=== PATIENT | female | born 1995 | race Two or more races ===

== ENCOUNTER 2019-08-20 16:39 | Outpatient (CLI) | payer MEDICAID ==
[2019-08-20 17:30] LABS: APPEARANCE,URINE CLEAR; BILIRUBIN,URINE NEGATIVE (NEGATIVE); COLOR,URINE YELLOW; GLUCOSE, URINE NEGATIVE (NEGATIVE); KETONES,URINE NEGATIVE (NEGATIVE); LEUKOCYTE ESTERASE,URINE NEGATIVE (NEGATIVE); NITRITE,URINE NEGATIVE (NEGATIVE); PROTEIN,URINE NEGATIVE (NEGATIVE); URINE SPECIFIC GRAVITY 1.016; UROBILINOGEN,URINE NEGATIVE mg/dL (<2.0)
[2019-08-20 17:46] LABS: URINE AMPHETAMINES SCREEN NEGATIVE; URINE BARBITURATES SCREEN NEGATIVE; URINE BENZODIAZEPINES SCREEN NEGATIVE; URINE COCAINE SCREEN NEGATIVE; URINE MARIJUANA (THC) SCREEN NEGATIVE; URINE METHADONE SCREEN NEGATIVE; URINE PHENCYCLIDINE SCREEN NEGATIVE
[2019-08-20] MEDS ORDERED: NIFEDIPINE 30 MG TAB.ER.24 PO ONE ×2 (18:22→18:30)
[2019-08-20 18:31] LABS: ABSOLUTE EOSINOPHILS # (AUTO) 0.1 10^3/uL (0.0-0.6); ABSOLUTE LYMPHOCYTES (AUTO) 2.3 10^3/uL (0.5-4.7); ABSOLUTE MONOCYTES (AUTO) 0.8 10^3/uL (0.1-1.4); BASOPHILS % (AUTO) 0.2 % (0-2); HEMATOCRIT 36.1 % (36.0-47.0); HEMOGLOBIN 12.2 g/dL (12.0-15.5); LYMPHOCYTES % (AUTO) 24.5 % (13-45); MEAN CORPUSCULAR HEMOGLOBIN 29.6 pg (27.0-33.4); MEAN CORPUSCULAR HGB CONC 33.7 g/dL (32.0-36.0); MEAN CORPUSCULAR VOLUME 88 fl (80-97); MONOCYTES % (AUTO) 8.8 % (3-13); PLATELET COUNT 227 10^3/uL (150-450); RED BLOOD COUNT 4.11 10^6/uL (3.72-5.28); RED CELL DISTRIBUTION WIDTH 14.2 % (11.5-14.0); SEGMENTED NEUTROPHILS % (AUTO) 65.5 % (42-78); TOTAL CELLS COUNTED % (AUTO) 100 %; WHITE BLOOD COUNT 9.2 10^3/uL (4.0-10.5)
[2019-08-20 18:49] LABS: ALBUMIN 3.6 g/dL (3.5-5.0); ALKALINE PHOSPHATASE 55 U/L (38-126); ANION GAP 7 (5-19); ASPARTATE AMINO TRANSFERASE 16 U/L (14-36); BILIRUBIN,DIRECT 0.2 mg/dL (0.0-0.4); BILIRUBIN,TOTAL 0.3 mg/dL (0.2-1.3); BLOOD UREA NITROGEN 8 mg/dL (7-20); CALCIUM 9.2 mg/dL (8.4-10.2); CARBON DIOXIDE 23 mmol/L (22-30); CHLORIDE 106 mmol/L (98-107); GLUCOSE 80 mg/dL (75-110); POTASSIUM 4.2 mmol/L (3.6-5.0); TOTAL PROTEIN 6.7 g/dL (6.3-8.2)
[2019-08-20 18:54] LABS: UR PRO/CREAT RATIO RESULT 0.1 mg/mg (0.0-0.2); URINE CREATININE 146.2 mg/dL (16-327); URINE PROTEIN 9.1 mg/dL (<12)
== END 2019-08-20 19:36 | disposition home or self-care (01) ==
LOC: LC 16:39
PROVIDERS: ATTEND Student in an Organized Health Care Education/Training Program
PROC: 4A1HXCZ Monitoring of Products of Conception, Cardiac Rate, External Approach (ICD-10-PCS; principal; 2019-08-20)
DX: O14.92 Unspecified pre-eclampsia, second trimester (principal); O46.92 Antepartum hemorrhage, unspecified, second trimester; Z3A.19 19 weeks gestation of pregnancy
CPT/HCPCS: 59025; 36415; 83615; 84156; 84550; 82570; 85025; 80053; 81001; 80307; J3490

== ENCOUNTER 2019-09-12 13:35 | Emergency (ER) | payer MEDICAID | END 2019-09-12 14:06 | disposition left against medical advice (07) | LOC: ER 13:35 | DX: Z53.21 Procedure and treatment not carried out due to patient leaving prior to being seen by health care provider (principal) ==

== ENCOUNTER 2019-12-27 11:29 | Inpatient (IN) | payer MEDICAID ==
[2019-12-27] MEDS ORDERED: SUCCINYLCHOLINE CHLORIDE INJ 200 MG/10 ML VIAL ONE (11:36)
[2019-12-27] MEDS ORDERED: OXYTOCIN/0.9 % SODIUM CHLORIDE 30 UNIT/500 ML RTUINJ IV PRN ×2 (11:45→20:40)
[2019-12-27] MEDS ORDERED: RINGERS SOLUTION,LACTATED 1,000 ML IV PRN ×3 (11:45→23:30)
--- NOTE | 2019-12-27 12:01 | Admission Physical ---
Datetime Report Generated by CPN: 12/27/2019 12:01 CURRENT ADMISSION Chief Complaint: Sent from OB Office for Evaluation and Treatment - Please Specify Indication for Induction: PreEclampsia Indication for Induction- Other: 24*urine prot 330mg on 12/24 CHTN, takes procardia xl 30 mg daily Admit Impression : No Active Labor Admit Plan: Admit to Unit; Initiate Labor Induction Protocol Admit Plan- Other: GBS neg ALLERGIES Medication Allergies: Yes Medication Allergies: No Known Allergies (12/27/2019) Latex: No Latex Allergies OBSTETRICAL HISTORY EDC: 01/08/2020 00:00 : 4 Para: 2 Term: 2 : 0 SAB: 1 IAB: 0 Ectopic: 0 Livin Cesareans: 0 VBACs: 0 Multiple Births: 0 Gestational Diabetes: No Rh Sensitization: No Incompetent Cervix: No MILTON: No Infertility: No ART Treatment: No Uterine Anomaly: No IUGR: No Hx Previous C/S: No Macrosomia: No Hx Loss/Stillborn: No PIH: No Hx : No Placenta Previa/Abruption: No Depression/PP Depression: No PTL/PROM: No Post Hemorrhage: No Obstetrical History Comments: G1- EAB G2- 41 wks viable baby boy G2- 39 wks viable baby boy IOL HTN G3- Current SEE RECORDS Alcohol: No Marijuana : No Cocaine: No Other Illicit Drugs: No Cigarettes: Never Smoker. 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 Surgery: No Heart Disease: No Hosp/Surgery: No Autoimmune Disorder: No Anesthetic Complications: No Kidney Disease: No Abnormal Pap Smear: No Neuro/Epilepsy: No Psychiatric Disorders: No Other Medical Diseases: No Hepatitis/Liver Disease: No Significant Family History: No Varicosities/Phlebitis: No Trauma/Violence : No Thyroid Dysfunction: No INFECTIOUS HISTORY Gonorrhea: No Genital Herpes: No Chlamydia: No Tuberculosis: No Syphilis: No Hepatitis: No HIV/AIDS Exposure: No Rash or Viral Illness: No HPV: No PHYSICAL EXAM General: Normal HEENT: Normal Neurologic: Normal Thyroid: Deferred Heart: Normal Lungs: Normal Breast: Deferred Back: Deferred Abdomen: Normal Genitourinary Exam: Deferred Extremities: Normal DTRs: Normal Pelvic Type: Adequate Physical Exam Comments: Cervix exam per Dr. Smallwood at [facility] today 3CM Vital Signs: Reviewed FETUS A EGA: 38.2 Monitoring: External US FHR- Baseline: 150 Variability: Moderate 6-25bpm Accelerations: 15X15 Decelerations: None Admit Comment: Obesity pelvis proven to 9lb 3oz GBS neg PLANS FOR LABOR AND DELIVERY Labor and Delivery: None Pain Management: None Feeding Preference: Breast Benefit of Breast Feed Discussed: Yes Circumcision: Yes INFORMED CONSENT Assignment: Juanita Fox MD Signature: with User ID: [email or web address] : with User ID: Daniel
[2019-12-27] MEDS ORDERED: MISOPROSTOL 0.2 MG TABLET ONE ×2 (12:07→20:27)
[2019-12-27] MEDS ORDERED: LIDOCAINE 1% INJ-PF (10 MG/ML) 30 ML SDV ONE (12:07)
[2019-12-27] MEDS ORDERED: OXYTOCIN/0.9 % SODIUM CHLORIDE 30 UNIT/500 ML RTUINJ ONE (12:07)
[2019-12-27] MEDS ORDERED: OXYTOCIN 10 UNIT/ML VIAL ONE ×2 (12:07→19:47)
[2019-12-27 12:23] LABS: ABSOLUTE EOSINOPHILS # (AUTO) 0.1 10^3/uL (0.0-0.6); ABSOLUTE LYMPHOCYTES (AUTO) 1.4 10^3/uL (0.5-4.7); ABSOLUTE MONOCYTES (AUTO) 0.6 10^3/uL (0.1-1.4); ABSOLUTE NEUT (AUTO) 5.6 10^3/uL (1.7-8.2); BASOPHILS % (AUTO) 0.3 % (0-2); EOSINOPHILS % (AUTO) 0.7 % (0-6); HEMATOCRIT 33.3 % (36.0-47.0); HEMOGLOBIN 11.1 g/dL (12.0-15.5); LYMPHOCYTES % (AUTO) 18.6 % (13-45); MEAN CORPUSCULAR HEMOGLOBIN 26.5 pg (27.0-33.4); MEAN CORPUSCULAR HGB CONC 33.4 g/dL (32.0-36.0); MEAN CORPUSCULAR VOLUME 80 fl (80-97); MONOCYTES % (AUTO) 8.2 % (3-13); PLATELET COUNT 264 10^3/uL (150-450); RED BLOOD COUNT 4.19 10^6/uL (3.72-5.28); RED CELL DISTRIBUTION WIDTH 15.4 % (11.5-14.0); SEGMENTED NEUTROPHILS % (AUTO) 72.2 % (42-78); TOTAL CELLS COUNTED % (AUTO) 100 %; WHITE BLOOD COUNT 7.7 10^3/uL (4.0-10.5)
[2019-12-27 12:48] LABS: ALBUMIN 3.5 g/dL (3.5-5.0); ALKALINE PHOSPHATASE 145 U/L (38-126); ANION GAP 6 (5-19); ASPARTATE AMINO TRANSFERASE 16 U/L (14-36); BILIRUBIN,TOTAL 0.3 mg/dL (0.2-1.3); BLOOD UREA NITROGEN 7 mg/dL (7-20); CALCIUM 9.1 mg/dL (8.4-10.2); CARBON DIOXIDE 22 mmol/L (22-30); CHLORIDE 105 mmol/L (98-107); GLUCOSE 81 mg/dL (75-110); POTASSIUM 4.3 mmol/L (3.6-5.0); TOTAL PROTEIN 6.6 g/dL (6.3-8.2); URIC ACID 4.2 mg/dL (2.5-6.2); URINE AMPHETAMINES SCREEN NEGATIVE; URINE BARBITURATES SCREEN NEGATIVE; URINE BENZODIAZEPINES SCREEN NEGATIVE; URINE COCAINE SCREEN NEGATIVE; URINE MARIJUANA (THC) SCREEN NEGATIVE; URINE METHADONE SCREEN NEGATIVE; URINE PHENCYCLIDINE SCREEN NEGATIVE
[2019-12-27] MEDS ORDERED: FENTANYL/BUPIVACAINE/NS/PF 300 MCG/150 ML RTUINJ EPI ONE (16:12)
[2019-12-27] MEDS ORDERED: EPHEDRINE SULFATE INJ 50 MG/1 ML AMPULE ONE (16:12)
[2019-12-27] MEDS ORDERED: BUPIVACAINE HCL 0.25 % INJ/PF (2.5 MG/1 ML) 30 ML VIAL ONE (16:12)
[2019-12-27] MEDS ORDERED: FENTANYL CITRATE INJ/PF 100 MCG/2 ML AMPUL ONE (16:41)
[2019-12-27] MEDS ORDERED: CITRIC ACID/SODIUM CITRATE ORAL SOLN 15 ML UDCUP ONE (19:27)
[2019-12-27] MEDS ORDERED: CEFAZOLIN 1 GM/D5W RTU 2 GM/100 ML RTUPB IV ONE (19:27)
[2019-12-27] MEDS ORDERED: LIDOCAINE 2% INJ-PF (20 MG/ML) 10 ML AMPUL ONE (19:32)
[2019-12-27] MEDS ORDERED: CARBOPROST TROMETHAMINE INJ 250 MCG/1 ML AMPULE ONE (19:48)
[2019-12-27] MEDS ORDERED: ONDANSETRON HCL INJ/PF 4 MG/2 ML SDV ONE ×2 (20:01→22:10)
[2019-12-27] MEDS ORDERED: KETOROLAC TROMETHAMINE 60 MG/2 ML SDV ONE (20:01)
[2019-12-27] MEDS ORDERED: ACETAMINOPHEN 1,000 MG/100 ML RTUPB IV ONE (20:04)
[2019-12-27] MEDS ORDERED: DIPH/PERTUSS(ACELL)/TETANUS VAC/PF 0.5 ML SYR (>=10YO) IM PRN (20:40)
[2019-12-27] MEDS ORDERED: SIMETHICONE 80 MG TAB.CHEW PO PRN (20:40)
[2019-12-27] MEDS ORDERED: HYDROMORPHONE HCL INJ/PF 2 MG/ML AMPULE IV PRN (20:40)
[2019-12-27] MEDS ORDERED: PROMETHAZINE HCL INJ 25 MG/1 ML VIAL IV PRN (20:40)
[2019-12-27] MEDS ORDERED: OXYCODONE-ACETAMINOPHEN 5-325 MG TABLET PO PRN ×2 (20:40)
[2019-12-27] MEDS ORDERED: ACETAMINOPHEN 1,000 MG/100 ML RTUPB IV PRN (20:40)
[2019-12-27] MEDS ORDERED: MEASLES,MUMPS&RUBELLA VACC/PF 0.5 ML VIAL SUBCUT PRN (20:40)
[2019-12-27] MEDS ORDERED: PIPERACILLIN/TAZOBACTAM 3.375 GM VIAL IV SCH (20:45)
--- NOTE | 2019-12-27 21:20 | Operative Report ---
Operative Report DATE OF SURGERY: 12/27/19 PREOPERATIVE DIAGNOSIS: CHTN with superimposed PreE, 38wks, , Nonreassur ing FHT POSTOPERATIVE DIAGNOSIS: CINDY OPERATION: Primary Section SURGEON: ELVIA TINOCO ANESTHESIA: GA TISSUE REMOVED OR ALTERED: placenta and cord COMPLICATIONS: patient to ICU ESTIMATED BLOOD LOSS: 700 QUANTITATIVE BLOOD LOSS: 709 INTRAOPERATIVE FINDINGS: VMI delivered at 1944, Intubation at 1942, Apgars 9/9, weight 8#11oz, normal bilateral tubes and ovaries, good hemostasis after placement of surgicel. baby to Nursery. PROCEDURE: Anesthesia provider: [Chiqui Ryan BACTERIOLOGIST [employer]] Urine output: [150ml] IV fluids: [1100ml] Indications: [24yo [id number] at 38wks admitted and IOL for CHTN and superimposed preE. Pt underwent epidural at 1730 and then BPs low - given bolus and given ephedrine. Baby with repetitive decels and minimal variability - reviewed with patient and family that recommend Primary Section for NRFHTs. The risks, benefits, alternatives were reviewed and she desired to proceed with planned procedure. Upon arrival to the OR her epidural was bolused and then patient desaturation and became unresponsive. She was then intubated and then baby delivered shortly via section. Unable to extubate due to poor respiratory effort and now with dilated pupils. CT of head ordered and patient will be transferred to the ICU for management. Appreciate Anesthesia and Santiagoer (guitar maker hand) assistance.] Procedure: The patient was taken to the operating room where epidural anesthesia was bolused and then patient became unresponsive and decision was made to intubate. At this time she was undergoing bag mask ventilation and she was then prepped and draped in the normal sterile fashion and placed in the dorsal supine position with a leftward tilt. After intubation a Pfannenstiel skin incision was then made and carried through to the underlying layers of the fascia with the scalpel. The fascia was incised in the midline and the incision extended laterally bluntly. The superior aspect of the fascial incision was then grasped with Proctor clamps elevated and the underlying rectus muscles dissected off [bluntly]. The rectus muscles were then in the midline and the peritoneum at the amount identified and entered [bluntly]. The peritoneal incision was then extended superiorly and inferiorly with good visualization of the bladder. The bladder blade was then inserted and the lower uterine segment incised in a transverse fashion with the scalpel. The uterine incision was then extended bluntly. FSE was still noted to be on this was cut and removed by the RN vaginally (both pieces removed and count correct). The bladder blade was removed and the 's head was delivered from cephalic presentation atraumatically. The nose and mouth were suctioned and the cord doubly clamped and cut. And the was handed off to waiting pediatricians. The placenta was then delivered spontaneously and the uterus exteriorized and cleared of all clots and debris. The uterine incision was then repaired with 1- 0 Vicryl in a running locked fashion. A second layer of the same suture was used to obtain hemostasis via imbrication of the initial layer. The bladder flap was then repaired with 3-0 chromic in a running fashion. The uterus was returned to the patient's abdomen and Surgicel was placed for hemostasis. The gutters were cleared of all clots and debris. All operative sites were noted to be hemostatic. The fascia was reapproximated with 0 Vicryl in a running fashion from each lateral edge to the midline. The skin was closed with 3-0 Monocryl in a running subcuticular fashion with overlying Dermabond for additional dressing as well as wound closure. The patient tolerated the procedure well. Sponge lap needle and instrument counts are correct times 2. 2 g of Ancef were given prior to skin incision. The patient was taken to the recovery area awake and in stable condition. Zosyn will be continued for at least 24 hours after surgery due to urgent nature of procedure and FSE not removed prior to incision.
[2019-12-27] MEDS: CARBOPROST TROMETHAMINE INJ 250 MCG/1 ML AMPULE IM SCH ×3 (22:00→22:41)
[2019-12-27 22:14] LABS: ABSOLUTE LYMPHOCYTES (AUTO) 1.1 10^3/uL (0.5-4.7); ABSOLUTE MONOCYTES (AUTO) 0.9 10^3/uL (0.1-1.4); ABSOLUTE NEUT (AUTO) 14.7 10^3/uL (1.7-8.2); BASOPHILS % (AUTO) 0.3 % (0-2); HEMATOCRIT 35.8 % (36.0-47.0); HEMOGLOBIN 11.7 g/dL (12.0-15.5); LYMPHOCYTES % (AUTO) 6.5 % (13-45); MEAN CORPUSCULAR HEMOGLOBIN 26.3 pg (27.0-33.4); MEAN CORPUSCULAR HGB CONC 32.7 g/dL (32.0-36.0); MEAN CORPUSCULAR VOLUME 81 fl (80-97); MONOCYTES % (AUTO) 5.4 % (3-13); PLATELET COUNT 277 10^3/uL (150-450); RED BLOOD COUNT 4.45 10^6/uL (3.72-5.28); RED CELL DISTRIBUTION WIDTH 15.6 % (11.5-14.0); SEGMENTED NEUTROPHILS % (AUTO) 87.8 % (42-78); TOTAL CELLS COUNTED % (AUTO) 100 %; WHITE BLOOD COUNT 16.8 10^3/uL (4.0-10.5)
[2019-12-27] MEDS ORDERED: ONDANSETRON HCL INJ/PF 4 MG/2 ML SDV IV PRN (22:15)
[2019-12-27 22:19] LABS: INTERNATIONAL RATION (INR) 1.02; PARTIAL THROMBOPLASTIN TIME 24.5 SEC (23.5-35.8); PROTHROMBIN TIME 13.4 SEC (11.4-15.4)
[2019-12-27 22:33] LABS: ALBUMIN 3.8 g/dL (3.5-5.0); ALKALINE PHOSPHATASE 164 U/L (38-126); ANION GAP 11 (5-19); ASPARTATE AMINO TRANSFERASE 19 U/L (14-36); BILIRUBIN,TOTAL 0.5 mg/dL (0.2-1.3); BLOOD UREA NITROGEN 7 mg/dL (7-20); CALCIUM 9.6 mg/dL (8.4-10.2); CARBON DIOXIDE 19 mmol/L (22-30); CHLORIDE 104 mmol/L (98-107); GLUCOSE 131 mg/dL (75-110); POTASSIUM 4.2 mmol/L (3.6-5.0)
[2019-12-27] MEDS: PIPERACILLIN SODIUM/TAZOBACTAM 3.375 GM in NORMAL SALINE 100 ML IV SCH (23:27)
--- NOTE | 2019-12-27 23:51 | Delivery Summary ---
Del Sum A-C Datetime Report Generated by CPN: 12/27/2019 23:51 DELIVERY PERSONNEL DELIVERY PERSONNEL: [id number] Delivery Doctor:: Juanita Fox MD Anesthesiologist:: Dalila Pyle COVER MAT MACHINE OPERATOR:: Josefa Dumont CRNA Adult Education Instructor:: Adri Nevarez RN Neonatal Nurse Practitioner:: JORI Cartwright Nursery Nurse:: Kandy Glass RN Director Telehealth/TITLE I ASSISTANT: Kelly Herrera CST Director Telehealth/TITLE I ASSISTANT: Marisa Landry, CP BLEACHER OPERATOR MATERNAL INFORMATION Delivery Anesthesia: General Medications After Delivery: Pitocin Bolus-Please Comment; Pitocin 30 Units in 500ml NS/D5W; Cytotec 1000mcg Per Rectum/Vagina Delivery QBL: 709 Maternal Complications: None LABOR SUMMARY EDC: 01/08/2020 00:00 No. Babies in Womb: 1 Attempted: No Labor Anesthesia: Epidural LABOR INFORMATION Reason for Induction: Chronic Primary/Essential HTN Onset of Labor: 12/27/2019 13:20 Oxytocin: Induction Group B Beta Strep: negative Antibiotics # of Doses: 0 Antibiotics Time of Last Dose: n/a Name of Antibiotic Given: n/a Steroids Given: None Reason Steroids Not Administered: Not Applicable MEMBRANES Membranes Rupture Method: Artificial Rupture of Membranes: 12/27/2019 13:20 Length of Rupture (hr): 6.40 Amniotic Fluid Color: Clear Amniotic Fluid Amount: Small Amniotic Fluid Odor: Normal STAGES OF LABOR Stage 3 hr: 0 Stage 3 min: 1 Total Time in Labor hr: 6 Total Time in Labor min: 25 VAGINAL DELIVERY Episiotomy: None Laceration #1: None Laceration Extension #1: N/A Laceration Repair: Not Applicable CSECTION DELIVERY Primary Indication: Nonreassuring Status Secondary Indication: N/A CSection Urgency: Emergency CSection Incidence: Primary Labor: Labor Elective: N/A CSection Incision: Lower Uterine Transverse BABY A INFORMATION Delivery Date/Time: 12/27/2019 19:44 Method of Delivery: Nurse Controlled Delivery: No Born in Route : No : N/A Forceps: N/A Vacuum Extraction: N/A Shoulder Dystocia : No PRESENTATION/POSITION BABY A Presentation: Cephalic Cephalic Presentation: Vertex Breech Presentation: N/A PLACENTA INFORMATION BABY A Placenta Delivery Time : 12/27/2019 19:45 Placenta Method of Delivery: Manual Removal Placenta Status: Delivered SCORES BABY A Heart Rate 1 min: >100 bpm Resp Effort 1 min: Good Cry Reflex Irritability 1 min: Cough or Sneeze or Pulls Away Muscle Tone 1 min: Active Motion Color 1 min: Body [place], Extremities Blue SCORE 1 MIN: 9 Heart Rate 5 min: >100 bpm Resp Effort 5 min: Good Cry Reflex Irritability 5 min: Cough or Sneeze or Pulls Away Muscle Tone 5 min: Active Motion Color 5 min: Body [place], Extremities Blue SCORE 5 MIN: 9 INFORMATION BABY A Gestational Age at Delivery: 38.2 Gestational Status: Early Term- 37- 38.6 Weeks Outcome : Liveborn Infant Condition : Stable Infant Sex: Male IDENTIFICATION BABY A Infant Verification Date/Time: 12/27/2019 19:50 ID Band Number: [id number] Mother's Name Verified: Yes Infant RN Verifying Infant: Meena Fletcher RN Additional Verifying Personnel: Jameson Moore, RN WEIGHT/LENGTH BABY A Birthweight (gm): 3935 Weight (lb): 8 Infant Weight (oz): 11 Length (in): 21.50 Length (cm): 54.61 CORD INFORMATION BABY A No. Cord Vessels: 3 Nuchal Cord : N/A Cord Blood Taken: Yes-For Storage (Mom's Blood type +) ASSESSMENT BABY A Skin to Skin: No Skin to Skin Time (min): 0 BABY B INFORMATION : N/A SIGNATURES : I was personally available for consultation and serving as supervising physician for the MLP.
--- NOTE | 2019-12-28 00:10 | CRITICAL CARE ADMISSION REPORT ---
HPI Date:: 12/27/19 Time:: 23:47 Reason for ICU Reason:: Respiratory failure HPI: 24yo 38wks gestation admitted for CHTN and superimposed pre eclampsia. Pt underwent epidural at 1730 and became hypotensive - given bolus LR and ephedrine. Baby with repetitive decels and minimal variability - and was therefore taken for emergent C- section Upon arrival to the OR her epidural was bolused and she became hypoxic with sats in the 70's and unresponsive. She was subsequently intubated. Unable to extubate due to poor respiratory effort and now with dilated pupils. CT of head ordered on way to CT patient awoke following commands and was therefore extubated. CT scan d/c'd unable to move lower extremities. I spoke with Dr Pyle anesthesiologist who asked for patient to come to the ICU for closer observation secondary to a questionable high spinal. She is admitted to the ICU for further management. - Diagnosis/Plan (1) Chronic hypertension with superimposed pre-eclampsia Is this a current diagnosis for this admission?: Yes Plan: Status post C- section On Nifedepine at home for chronic HTN will hold for now as patient was hypotensive earlier Will monitor BP and start home antihypertensive when able (2) S/P primary low transverse Is this a current diagnosis for this admission?: Yes Plan: Under the care of OB (3) Acute respiratory failure with hypoxia Is this a current diagnosis for this admission?: Yes Plan: Most likely secondary to high spinal anesthesia Now extubated on O2 2L NC will wean as tolerated (4) Paralysis Is this a current diagnosis for this admission?: Yes Plan: most likely secondary to epidural Temporary, now moving all extremities, will continue to monitor in the ICU overnight Past Medical History Cardiac Medical History: Reports: Hypertension Pulmonary Medical History: Reports: None EENT Medical History: Reports: None Neurological Medical History: Reports: None Endocrine Medical History: Reports: None Renal/ Medical History: Reports: None Malignancy Medical History: Reports: None GI Medical History: Reports: None Musculoskeltal Medical History: Reports: None Skin Medical History: Reports: None Psychiatric Medical History: Reports: None Traumatic Medical History: Reports: None Hematology: Reports: None Infectious Medical History: Reports: None Past Surgical History Past Surgical History: Reports: Section Social/Family History - Social History Smoking Status: Never Smoker Frequency of Alcohol Use: Rare Hx Recreational Drug Use: No Drugs: None - Family History Family History: None - Medication/Allergies Home Medications: Vitamin [-U Multiple Vitamin Capsule] 1 cap PO DAILY 08/20/19 Nifedipine [Nifedipine ER] 90 mg PO DAILY 12/27/19 Allergies/Adverse Reactions: No Known Allergies Allergy (Verified 12/27/19 11:40) Review of Systems All systems: reviewed and no additional remarkable complaints except as stated Physical Exam Vital Signs: Intake & Output 12/26/19 12/27/19 12/28/19 06:59 06:59 06:59 Weight 116.4 kg Weight/Height Weight 116.4 kg Height 5 ft 7 in General appearance: PRESENT: no acute distress Head exam: PRESENT: atraumatic, normocephalic Eye exam: PRESENT: conjunctival injection, PERRLA Mouth exam: PRESENT: moist Neck exam: PRESENT: full ROM Respiratory exam: PRESENT: clear to auscultation cassy Cardiovascular exam: PRESENT: +S1, +S2 Pulses: PRESENT: normal radial pulses, +2 pedal pulses bilateral GI/Abdominal exam: PRESENT: hypoactive bowel sounds, tenderness - Post Gentrourinary exam: PRESENT: indwelling catheter Musculoskeletal exam: PRESENT: ambulatory, full ROM, other - 5/5 motor strength Neurological exam: PRESENT: alert, awake, oriented to person, oriented to place, oriented to time, oriented to situation Psychiatric exam: PRESENT: anxious Laboratory/Radiographs Laboratory Results: 12/27/19 22:00 12/27/19 22:00 12/27/19 12/27/19 12/27/19 11:45 12:03 12:03 WBC 7.7 RBC 4.19 Hgb 11.1 L Hct 33.3 L MCV 80 MCH 26.5 L MCHC 33.4 RDW 15.4 H Plt Count 264 Seg Neutrophils % 72.2 Sodium 133.4 L Potassium 4.3 Chloride 105 Carbon Dioxide 22 Anion Gap 6 BUN 7 Creatinine 0.44 L Est GFR ( Amer) > 60 Glucose 81 Lactic Acid Uric Acid 4.2 Calcium 9.1 Magnesium Total Bilirubin 0.3 AST 16 Alkaline Phosphatase 145 H Total Protein 6.6 Albumin 3.5 Blood Type A POSITIVE Antibody Screen NEGATIVE 12/27/19 12/27/19 12/27/19 22:00 22:00 22:00 WBC 16.8 H D RBC 4.45 Hgb 11.7 L Hct 35.8 L MCV 81 MCH 26.3 L MCHC 32.7 RDW 15.6 H Plt Count 277 Seg Neutrophils % 87.8 H Sodium 133.5 L Potassium 4.2 Chloride 104 Carbon Dioxide 19 L Anion Gap 11 BUN 7 Creatinine 0.46 L Est GFR ( Amer) > 60 Glucose 131 H Lactic Acid 2.2 H Uric Acid Calcium 9.6 Magnesium 1.6 Total Bilirubin 0.5 AST 19 Alkaline Phosphatase 164 H Total Protein 7.0 Albumin 3.8 Blood Type Antibody Screen All labs, radiographs, diagnostic studies and EKGs were personally reviewed: Yes In addition, reports of radiographic and diagnostic studies were read: Yes Critical Time Critical Time (minutes): 35 -: The care of a critically ill patient is dynamic. This note represents a static moment in the admission process. Orders and treatments may be given simultaneously and urgently, and time is not graphic art sales representative of the treatment process. This patient requires Critical Care secondary to life threatening organ or limb dysfunction. Without Critical Care services, the patient is at risk for increased mortality and morbidity.
[2019-12-28] MEDS ORDERED: ONDANSETRON HCL INJ/PF 4 MG/2 ML SDV IV ONE (00:30)
[2019-12-28] MEDS: IBUPROFEN 800 MG TABLET PO SCH ×4 (00:37→17:23)
[2019-12-28] MEDS: PIPERACILLIN SODIUM/TAZOBACTAM 3.375 GM in NORMAL SALINE 100 ML IV SCH ×4 (02:13→20:20)
[2019-12-28 04:23] LABS: HEMATOCRIT 33.5 % (36.0-47.0); HEMOGLOBIN 10.9 g/dL (12.0-15.5); MEAN CORPUSCULAR HEMOGLOBIN 26.3 pg (27.0-33.4); MEAN CORPUSCULAR HGB CONC 32.5 g/dL (32.0-36.0); MEAN CORPUSCULAR VOLUME 81 fl (80-97); PLATELET COUNT 242 10^3/uL (150-450); RED BLOOD COUNT 4.14 10^6/uL (3.72-5.28); RED CELL DISTRIBUTION WIDTH 15.7 % (11.5-14.0); WHITE BLOOD COUNT 15.6 10^3/uL (4.0-10.5)
[2019-12-28] MEDS: DOCUSATE SODIUM 100 MG CAPSULE PO SCH ×2 (09:20→17:23)
[2019-12-28] MEDS: PRENATAL VITAMIN W DHA CAPSULE PO SCH (09:20)
[2019-12-28] MEDS ORDERED: DIPH/PERTUSS(ACELL)/TETANUS VAC/PF 0.5 ML SYR (>=10YO) IM PRN (10:00)
[2019-12-28] MEDS ORDERED: MEASLES,MUMPS&RUBELLA VACC/PF 0.5 ML VIAL SUBCUT PRN (10:30)
[2019-12-28] MEDS ORDERED: PROMETHAZINE HCL INJ 25 MG/1 ML VIAL IV PRN (10:30)
--- NOTE | 2019-12-28 12:46 | PDOC PROGRESS REPORT ---
Subjective-OB Progress Note for:: 12/28/19 Subjective: reports bleeding slowing, pain controlled with current meds. denies needs. + passing gas Physical Exam (OB) Vital Signs: Temp Pulse Resp BP Pulse Ox 98.1 F 99 16 136/75 H 100 12/28/19 11:49 12/28/19 11:49 12/28/19 11:49 12/28/19 11:49 12/28/19 11:49 Intake & Output 12/27/19 12/28/19 12/29/19 06:59 06:59 06:59 Intake Total 1710 700 Output Total 3675 Balance -1965 700 Weight 114.7 kg - Dressing Removed: - N/A Incision: Well Approximated Closure Type: Surgical Glue - Abdomen Description: Tender, Soft Hernia Present: No Fundal Description: Firm, Midline Fundal Height: u/u - u/2 - Abdominal Distension: No distension - Extremities Lower extremities: Martinez's sign - neg Calf: Normal, Nontender Objective-Diagnostic Laboratory: 12/28/19 04:06 12/27/19 22:00 12/27/19 12/27/19 12/27/19 11:45 12:03 22:00 WBC 16.8 H D RBC 4.45 Hgb 11.7 L Hct 35.8 L MCV 81 MCH 26.3 L MCHC 32.7 RDW 15.6 H Plt Count 277 Seg Neutrophils % 87.8 H Sodium 133.4 L Potassium 4.3 Chloride 105 Carbon Dioxide 22 Anion Gap 6 BUN 7 Creatinine 0.44 L Est GFR ( Amer) > 60 Glucose 81 Lactic Acid Uric Acid 4.2 Calcium 9.1 Magnesium Total Bilirubin 0.3 AST 16 Alkaline Phosphatase 145 H Total Protein 6.6 Albumin 3.5 Blood Type A POSITIVE Antibody Screen NEGATIVE 12/27/19 12/27/19 12/28/19 22:00 22:00 04:06 WBC 15.6 H RBC 4.14 Hgb 10.9 L Hct 33.5 L MCV 81 MCH 26.3 L MCHC 32.5 RDW 15.7 H Plt Count 242 Seg Neutrophils % Sodium 133.5 L Potassium 4.2 Chloride 104 Carbon Dioxide 19 L Anion Gap 11 BUN 7 Creatinine 0.46 L Est GFR ( Amer) > 60 Glucose 131 H Lactic Acid 2.2 H Uric Acid Calcium 9.6 Magnesium 1.6 Total Bilirubin 0.5 AST 19 Alkaline Phosphatase 164 H Total Protein 7.0 Albumin 3.8 Blood Type Antibody Screen Assessment and Plan(PN) - Assessment and Plan (1) Pre-eclampsia in third trimester Is this a current diagnosis for this admission?: Yes (2) Acute respiratory failure with hypoxia Is this a current diagnosis for this admission?: Yes (3) Chronic hypertension with superimposed pre-eclampsia Is this a current diagnosis for this admission?: Yes (4) Non-reassuring electronic monitoring tracing Is this a current diagnosis for this admission?: Yes (5) S/P primary low transverse Is this a current diagnosis for this admission?: Yes - Time Spent with Patient Time with patient: Less than 15 minutes - Disposition Anticipated Discharge: Home Within: within 48 hours
[2019-12-28] MEDS: NIFEDIPINE 30 MG TAB.ER.24 PO SCH (15:16)
[2019-12-28] MEDS: ACETAMINOPHEN 325 MG TABLET PO PRN (20:19)
[2019-12-29] MEDS: IBUPROFEN 800 MG TABLET PO SCH ×3 (00:31→12:59)
[2019-12-29] MEDS: ACETAMINOPHEN 325 MG TABLET PO PRN (03:57)
[2019-12-29] MEDS: DOCUSATE SODIUM 100 MG CAPSULE PO SCH (10:31)
[2019-12-29] MEDS: PRENATAL VITAMIN W DHA CAPSULE PO SCH (10:31)
--- NOTE | 2019-12-29 11:06 | PDOC DISCHARGE SUMMARY ---
Impression - Admit/DC Date/PCP Admission Date/Primary Care Provider: 12/27/19 11:29 NO LOCALMD Discharge Date: 12/29/19 - POD #2, pt doing well, desires to go home today. S/p High spinal which caused respiratory arrest, pt was in ICU after her to recover. Hx GHTN w/ mild Pre-E. A+ , breast and bottle feeding - Discharge Diagnosis (1) Acute respiratory failure with hypoxia Is this a current diagnosis for this admission?: Yes (2) Chronic hypertension with superimposed pre-eclampsia Is this a current diagnosis for this admission?: Yes (3) Non-reassuring electronic monitoring tracing Is this a current diagnosis for this admission?: Yes (4) Paralysis Is this a current diagnosis for this admission?: Yes (5) Pre-eclampsia in third trimester Is this a current diagnosis for this admission?: Yes (6) S/P primary low transverse Is this a current diagnosis for this admission?: Yes - Additional Information Resuscitation Status: Full Code Discharge Diet: As Tolerated, Regular Discharge Activity: Activity As Tolerated, No Driving, No Lifting Over 10 Pounds, Pelvic Rest Referrals: LOCALMD,NO [Primary Care Provider] - Prescriptions: Ibuprofen [Motrin 800 mg Tablet] 800 mg PO Q6 #60 tablet Home Medications: Vitamin [-U Multiple Vitamin Capsule] 1 cap PO DAILY 08/20/19 Nifedipine [Nifedipine ER] 90 mg PO DAILY 12/27/19 Acetaminophen [Tylenol 325 mg Tablet] 650 mg PO Q4HP PRN tablet 12/29/19 Ibuprofen [Motrin 800 mg Tablet] 800 mg PO Q6 #60 tablet 12/29/19 HPI Reason(s) for Admission: Ceasarean Section-Primary Procedures: Ultrasound Intrapartum Procedure(s): : Low Cervical, Transverse Results Laboratory Results: WBC 15.6 10^3/uL (4.0-10.5) H 12/28/19 04:06 RBC 4.14 10^6/uL (3.72-5.28) 12/28/19 04:06 Hgb 10.9 g/dL (12.0-15.5) L 12/28/19 04:06 Hct 33.5 % (36.0-47.0) L 12/28/19 04:06 MCV 81 fl (80-97) 12/28/19 04:06 MCH 26.3 pg (27.0-33.4) L 12/28/19 04:06 MCHC 32.5 g/dL (32.0-36.0) 12/28/19 04:06 RDW 15.7 % (11.5-14.0) H 12/28/19 04:06 Plt Count 242 10^3/uL (150-450) 12/28/19 04:06 Lymph % (Auto) 6.5 % (13-45) L 12/27/19 22:00 [place]ing % (Auto) 5.4 % (3-13) 12/27/19 22:00 Eos % (Auto) 0.0 % (0-6) 12/27/19 22:00 Baso % (Auto) 0.3 % (0-2) 12/27/19 22:00 Absolute Neuts (auto) 14.7 10^3/uL (1.7-8.2) H 12/27/19 22:00 Absolute Lymphs (auto) 1.1 10^3/uL (0.5-4.7) 12/27/19 22:00 Absolute Monos (auto) 0.9 10^3/uL (0.1-1.4) 12/27/19 22:00 Absolute Eos (auto) 0.0 10^3/uL (0.0-0.6) 12/27/19 22:00 Absolute Basos (auto) 0.0 10^3/uL (0.0-0.2) 12/27/19 22:00 Seg Neutrophils % 87.8 % (42-78) H 12/27/19 22:00 PT 13.4 SEC (11.4-15.4) 12/27/19 22:00 INR 1.02 12/27/19 22:00 APTT 24.5 SEC (23.5-35.8) 12/27/19 22:00 Sodium 133.5 mmol/L (137-145) L 12/27/19 22:00 Potassium 4.2 mmol/L (3.6-5.0) 12/27/19 22:00 Chloride 104 mmol/L (98-107) 12/27/19 22:00 Carbon Dioxide 19 mmol/L (22-30) L 12/27/19 22:00 Anion Gap 11 (5-19) 12/27/19 22:00 BUN 7 mg/dL (7-20) 12/27/19 22:00 Creatinine 0.46 mg/dL (0.52-1.25) L 12/27/19 22:00 Est GFR ( Amer) > 60 (>60) 12/27/19 22:00 Est GFR (MDRD) Non-Af > 60 (>60) 12/27/19 22:00 Glucose 131 mg/dL (75-110) H 12/27/19 22:00 Lactic Acid 2.2 mmol/L (0.7-2.1) H 12/27/19 22:00 Uric Acid 4.2 mg/dL (2.5-6.2) 12/27/19 11:45 Calcium 9.6 mg/dL (8.4-10.2) 12/27/19 22:00 Magnesium 1.6 mg/dL (1.6-2.3) 12/27/19 22:00 Total Bilirubin 0.5 mg/dL (0.2-1.3) 12/27/19 22:00 Direct Bilirubin 0.0 mg/dL (0.0-0.4) 12/27/19 22:00 Neonat Total Bilirubin Not Reportable 12/27/19 22:00 Neonat Direct Bilirubin Not Reportable 12/27/19 22:00 Neonat Indirect Bili Not Reportable 12/27/19 22:00 AST 19 U/L (14-36) 12/27/19 22:00 ALT 11 U/L (<35) 12/27/19 22:00 Alkaline Phosphatase 164 U/L (38-126) H 12/27/19 22:00 Lactate Dehydrogenase 161 U/L (120-246) 12/27/19 11:45 Total Protein 7.0 g/dL (6.3-8.2) 12/27/19 22:00 Albumin 3.8 g/dL (3.5-5.0) 12/27/19 22:00 Urine Opiates Screen NEGATIVE 12/27/19 11:45 Urine Methadone Screen NEGATIVE 12/27/19 11:45 Ur Barbiturates Screen NEGATIVE 12/27/19 11:45 Ur Phencyclidine Scrn NEGATIVE 12/27/19 11:45 Ur Amphetamines Screen NEGATIVE 12/27/19 11:45 U Benzodiazepines Scrn NEGATIVE 12/27/19 11:45 Urine Cocaine Screen NEGATIVE 12/27/19 11:45 U Marijuana (THC) Screen NEGATIVE 12/27/19 11:45 RPR NONREACTIVE (NONREACTIVE) 12/27/19 12:03 Blood Type A POSITIVE 12/27/19 12:03 Antibody Screen NEGATIVE 12/27/19 12:03 Plan Plan of Treatment: d/c home, f/up at [facility] in one week for a BP and incision check Time Spent: Less than 30 Minutes
[2019-12-29] MEDS: NIFEDIPINE 30 MG TAB.ER.24 PO SCH (11:34)
[2019-12-29 11:40] VITALS: BP 140/95
== END 2019-12-29 14:51 | disposition home or self-care (01) | DRG 786 ==
LOC: LR 11:29 → ICU 21:30 → 2S 12-28 04:49
PROVIDERS: ADMIT Student in an Organized Health Care Education/Training Program; ATTEND Student in an Organized Health Care Education/Training Program
PROC: 10D00Z1 Extraction of Products of Conception, Low, Open Approach (ICD-10-PCS; principal; 2019-12-27)
PROC: 0BH17EZ Insertion of Endotracheal Airway into Trachea, Via Natural or Artificial Opening (ICD-10-PCS; 2019-12-27)
DX: O11.4 Pre-existing hypertension with pre-eclampsia, complicating childbirth (principal); J96.01 Acute respiratory failure with hypoxia; O10.02 Pre-existing essential hypertension complicating childbirth; O76 Abnormality in fetal heart rate and rhythm complicating labor and delivery; O99.52 Diseases of the respiratory system complicating childbirth; Z3A.38 38 weeks gestation of pregnancy; Z37.0 Single live birth
CPT/HCPCS: 1967; 1968; 36415; 80053; 80307; 83605; 83615; 83735; 84550; 85025; 85027; 85610; 85730; 86592; 86850; 86900; 86901; 87070; 88307; 94760; 94799; 99140; 99291; C1758; J0131; J0330; J0690; J1885; J2405; J2543; J2590; J3010; J3490; J7050; J7120